=== PATIENT | female | born 1955 | race Caucasian/White ===

== ENCOUNTER 2021-06-25 16:40 | Emergency (ER) | payer MEDICARE, SELFPAY ==
[2021-06-25 16:40] VITALS: BP 148/70; PULSE 69; RESP 20; TEMP 36.8; O2SAT 99; BMI 19.5
--- NOTE | 2021-06-25 16:50 | PC.NURSE ---
PATIENT SENT TO ER PER Ezekiel QUINN APRN FOR FURTHER EVALUATION. REPORT GIVEN TO Vick DOMINGUEZ RN
--- NOTE | 2021-06-25 17:10 | HMH.EDUTC ---
[facility] Disposition Clinical Impression: Near syncope Headache Qualifiers: Headache type: unspecified Headache chronicity pattern: acute headache Intractability: not intractable Qualified Code(s): R51.9 - Headache, unspecified Nausea and vomiting Qualifiers: Vomiting type: unspecified Vomiting Intractability: non-intractable Qualified Code(s): R11.2 - Nausea with vomiting, unspecified Disposition: Home, Self-Care Condition on Discharge: Fair Instructions: DI for Syncope in Adults (Fainting), DI for Nausea -- Adult Prescriptions: Fluticasone Propionate [Flonase Allergy Relief NS] 1 spray NS BID PRN #1 ml PRN Reason: Congestion Transmission Status: Received by [facility] # Ondansetron [Zofran 4mg ODT] 4 mg PO TIDP PRN #10 tab PRN Reason: Nausea Transmission Status: Received by [facility] # Referrals: Nolan Elder MD [Primary Care Provider] - 3 days Time of Disposition: 17:22 Medical Decision Making - Jm Inquiry Pt receiving controlled substance: No Jm was queried for this patient: No Vital Signs: 06/25/21 16:40 06/25/21 17:13 06/25/21 18:00 Temperature 98.2 F 97.5 F L Temperature Source Oral Oral Pulse Rate 84 Pulse Rate [Left Brachial] 69 85 Respiratory Rate 20 18 16 Blood Pressure 142/88 H Blood Pressure [Left Arm] 148/70 H 157/94 H Blood Pressure Mean 110 Blood Pressure Mean [Left Arm] 96 115 Blood Pressure Source Blood Pressure Source [Left Arm] Automatic Cuff Automatic Cuff Blood Pressure Position [Left Arm] Sitting Sitting 02 Sat by Pulse Oximetry 99 97 99 Oxygen Delivery Method Room Air Room Air Room Air 06/25/21 19:25 Temperature 98.3 F Temperature Source Oral Pulse Rate 92 H Pulse Rate [Left Brachial] Respiratory Rate 19 Blood Pressure 150/98 H Blood Pressure [Left Arm] Blood Pressure Mean Blood Pressure Mean [Left Arm] Blood Pressure Source Manual Cuff/ Auscultation Blood Pressure Source [Left Arm] Blood Pressure Position [Left Arm] 02 Sat by Pulse Oximetry Oxygen Delivery Method Room Air - Lab Data Lab Results 06/25/21 17:10: WBC 8.7, RBC 4.50, Hgb 13.8, Hct 39.9, MCV 88.6, MCH 30.6, MCHC 34.5, RDW 13.0, Plt Count 433 H, MPV 8.2, Neut % (Auto) 57.3, Lymph % (Auto) 31.1, [place] % (Auto) 6.7, Eos % (Auto) 3.7, Baso % (Auto) 1.3, Neut # (Auto) 5.0, Lymph # (Auto) 2.7, [place] # (Auto) 0.6, Eos # (Auto) 0.3, Baso # (Auto) 0.1 06/25/21 17:10: Sodium 140, Potassium 2.8 L*, Chloride 105, Carbon Dioxide 18 L, Anion Gap 19.8 H, BUN 19 H, Creatinine 0.50 L, Estimated Creat Clear 42, Estimated GFR 123, Est GFR ( Amer) 149, Glucose 142 H, Calcium 9.8, Total Bilirubin 0.2, AST 32, ALT 21, Alkaline Phosphatase 102, Troponin I < 0.01, Total Protein 7.2, Albumin 4.6, Globulin 2.6, Albumin/Globulin Ratio 1.8 06/25/21 17:10: SARS-CoV-2 (PCR) Not detected, Influenza A Untype (PCR) Not detected, Influenza Type B (PCR) Not detected Result diagrams: 06/25/21 17:10 06/25/21 17:10 Orders (Tests/Meds): ED MEDICATIONS Discontinued Medications Generic Name Dose Route Start Last Admin Trade Name Freq PRN Reason Stop Dose Admin Lactated Ringer's 1,000 mls @ 999 mls/hr 06/25/21 19:15 06/25/21 19:06 Lactated Ringer's 1000 Ml Bag IV 06/25/21 20:15 999 mls/hr .Q1H1M JENNIFER Administration Methylprednisolone Sodium Succinate 40 mg 06/25/21 19:04 06/25/21 19:06 Methylprednisolone Sod Succ 40mg Vial IV 06/25/21 19:05 40 mg ONCE ONE Administration Ondansetron HCl 4 mg 06/25/21 17:20 06/25/21 17:21 Ondansetron 4mg/2ml Vial IV 06/25/21 17:21 4 mg ONCE ONE Administration Potassium Chloride 40 meq 06/25/21 18:05 06/25/21 18:11 Potassium Chloride 20meq/15ml Udc PO 06/25/21 18:06 40 meq ONCE ONE Administration Potassium Chloride 40 meq 06/25/21 19:15 06/25/21 19:36 Potassium Chloride 20meq/15ml Udc PO 06/25/21 19:16 40 meq ONCE ONE Administration Medical Decision Narrative: Pat
[2021-06-25 17:13] VITALS: BP 157/94; PULSE 85; RESP 18; TEMP 36.4; O2SAT 97; BMI 17.4
--- NOTE | 2021-06-25 17:19 | ECG_ITS ---
APPROVED REPORT Exam: Resting ECG HR:87 bpm ECG Measurements Heart Rate 87 AXES RI 140 P 33 QRSd 92 QRS 10 QT 416 T 52 QTc 500 Conclusion Normal sinus rhythm Poor r wave progression Abnormal ECG Electronically signed by : Nolan Flanagan MD 06/26/2021 14:21:28
[2021-06-25 17:25] LABS: Coronavirus 19, PCR Not Detected (NotDetected); Influenza A, PCR Not Detected (NotDetected); Influenza B, PCR Not Detected (NotDetected)
[2021-06-25 17:37] LABS: Basophils # 0.1 K/mm3 (0-0.2); Basophils % 1.3 % (0.1-2.0); Eosinophils # 0.3 K/mm3 (0.0-0.4); Eosinophils % 3.7 % (0.1-12.0); Hematocrit 39.9 % (37.0-47.0); Hemoglobin 13.8 g/dL (12.2-16.2); Lymphocytes # 2.7 K/mm3 (0.7-4.5); Lymphocytes % 31.1 % (10-50); Mean Corpuscular HGB Conc 34.5 g/dL (31.8-35.4); Mean Corpuscular Hemoglobin 30.6 pg (27.0-31.2); Mean Corpuscular Volume 88.6 fl (81-99); Mean Platelet Volume 8.2 fl (7.4-10.4); Monocytes # 0.6 K/mm3 (0.1-1.0); Monocytes % 6.7 % (1.7-9.3); Neutrophils % 57.3 % (37.0-80.0); Platelet Count 433 K/mm3 (142-424); White Blood Count 8.7 K/mm3 (4.8-10.8)
[2021-06-25 17:38] LABS: Sodium 140 mmol/L (136-145)
[2021-06-25 17:40] LABS: Blood Urea Nitrogen 19 mg/dl (7-17); Creatinine Clearance Estimated 42 mL/min (50-200); Estimated Glomerular Filt Rate 123 ml/min (>60); GFR (African American) 149 ML/MIN (>60)
[2021-06-25 17:41] LABS: Albumin Level 4.6 g/dl (3.5-5.0); Albumin/Globulin Ratio 1.8 (1.1-1.8); Calcium 9.8 mg/dl (8.4-10.2); Chloride 105 mmol/L (98-107); Globulin 2.6 g/dL (1.3-3.2); Glucose 142 mg/dl (74-100); Total Protein,Serum 7.2 g/dl (6.3-8.2)
[2021-06-25 17:44] LABS: Alanine Aminotransferase 21 U/L (12-78); Alkaline Phosphatase 102 U/L (38-126); Aspartate Amino Transferase 32 U/L (14-36); Bilirubin,Total 0.2 mg/dl (0.2-1.3); Carbon Dioxide 18 mmol/L (22.0-30.0)
[2021-06-25 17:49] LABS: Anion Gap 19.8 mEq/L (5-15); Potassium 2.8 mmoL/L (3.5-5.1)
[2021-06-25 17:56] LABS: Troponin I < 0.01 ng/ml (0.00-0.034)
[2021-06-25 18:00] VITALS: BP 142/88; PULSE 84; RESP 16; O2SAT 99
--- NOTE | 2021-06-25 18:01 | PC.NURSE ---
ER notified of critical potassium
--- NOTE | 2021-06-25 18:05 | CT_ITS ---
PROCEDURE INFORMATION: Exam: CT Head Without Contrast Exam date and time: 06/25/2021 6:05 PM Age: 66 years old Clinical indication: Pain; Headache not specified; Additional info: Dizziness headache TECHNIQUE: Imaging protocol: Computed tomography of the head without contrast. Radiation optimization: All CT scans at this facility use at least one of these dose optimization techniques: automated exposure control; mA and/or kV adjustment per patient size (includes targeted exams where dose is matched to clinical indication); or iterative reconstruction. COMPARISON: No relevant prior studies available. FINDINGS: Brain: Prominent sulci. Patchy hypodensity of the cerebral white matter which are nonspecific but likely secondary to microangiopathic changes. Cerebral ventricles: The ventricles are prominent secondary to diffuse volume loss/atrophy. Paranasal sinuses: Mild mucoperiosteal thickening of the paranasal sinuses. Mastoid air cells: Visualized mastoid air cells are well aerated. Bones/joints: Unremarkable. No acute fracture. Soft tissues: Unremarkable. IMPRESSION: 1. Mild mucoperiosteal thickening of the paranasal sinuses. 2. Chronic age related changes but no evidence of acute intracranial pathology.
--- NOTE | 2021-06-25 18:16 | PC.NURSE ---
pt to CT
--- NOTE | 2021-06-25 19:06 | HMH.EDGENADL ---
ED Disposition Clinical Impression: Near syncope Headache Qualifiers: Headache type: unspecified Headache chronicity pattern: acute headache Intractability: not intractable Qualified Code(s): R51.9 - Headache, unspecified Nausea and vomiting Qualifiers: Vomiting type: unspecified Vomiting Intractability: non-intractable Qualified Code(s): R11.2 - Nausea with vomiting, unspecified Disposition: Still a Patient Condition on Discharge: Good Prescriptions: Fluticasone Propionate [Flonase Allergy Relief NS] 1 spray NS BID PRN #1 ml PRN Reason: Congestion Transmission Status: Pending to [facility] # Ondansetron [Zofran 4mg ODT] 4 mg PO TIDP PRN #10 tab PRN Reason: Nausea Transmission Status: Pending to [facility] # Referrals: Nolan Elder MD [Primary Care Provider] - 3 days Time of Disposition: 19:13 - Critical Care Critical Care Time: No Attestation: On 06/25/21, the high probability of a clinically significant, sudden or life threatening deterioration of the following system(s) required my full and direct attention, intervention and personal management. The time I documented below is in addition to time spent performing reported procedures but includes the following listed in this critical care notation. Medical Decision Making - Medical Records Medical records reviewed: Yes: I reviewed the patient's medical records. - Jm Inquiry Pt receiving controlled substance: No Vital Signs: 06/25/21 16:40 06/25/21 17:13 06/25/21 18:00 Temperature 98.2 F 97.5 F L Temperature Source Oral Oral Pulse Rate 84 Pulse Rate [Left Brachial] 69 85 Respiratory Rate 20 18 16 Blood Pressure 142/88 H Blood Pressure [Left Arm] 148/70 H 157/94 H Blood Pressure Mean 110 Blood Pressure Mean [Left Arm] 96 115 Blood Pressure Source [Left Arm] Automatic Cuff Automatic Cuff Blood Pressure Position [Left Arm] Sitting Sitting 02 Sat by Pulse Oximetry 99 97 99 Oxygen Delivery Method Room Air Room Air Room Air - Lab Data Lab results reviewed: Yes: I reviewed the patient's lab results. Lab Results 06/25/21 17:10: WBC 8.7, RBC 4.50, Hgb 13.8, Hct 39.9, MCV 88.6, MCH 30.6, MCHC 34.5, RDW 13.0, Plt Count 433 H, MPV 8.2, Neut % (Auto) 57.3, Lymph % (Auto) 31.1, [place] % (Auto) 6.7, Eos % (Auto) 3.7, Baso % (Auto) 1.3, Neut # (Auto) 5.0, Lymph # (Auto) 2.7, [place] # (Auto) 0.6, Eos # (Auto) 0.3, Baso # (Auto) 0.1 06/25/21 17:10: Sodium 140, Potassium 2.8 L*, Chloride 105, Carbon Dioxide 18 L, Anion Gap 19.8 H, BUN 19 H, Creatinine 0.50 L, Estimated Creat Clear 42, Estimated GFR 123, Est GFR ( Amer) 149, Glucose 142 H, Calcium 9.8, Total Bilirubin 0.2, AST 32, ALT 21, Alkaline Phosphatase 102, Troponin I < 0.01, Total Protein 7.2, Albumin 4.6, Globulin 2.6, Albumin/Globulin Ratio 1.8 06/25/21 17:10: SARS-CoV-2 (PCR) Not detected, Influenza A Untype (PCR) Not detected, Influenza Type B (PCR) Not detected Result diagrams: 06/25/21 17:10 06/25/21 17:10 Orders (Tests/Meds): ED MEDICATIONS Generic Name Dose Route Start Last Admin Trade Name Freq PRN Reason Stop Dose Admin Lactated Ringer's 1,000 mls @ 999 mls/hr 06/25/21 19:15 Lactated Ringer's 1000 Ml Bag IV 06/25/21 20:15 .Q1H1M JENNIFER Discontinued Medications Generic Name Dose Route Start Last Admin Trade Name Freq PRN Reason Stop Dose Admin Methylprednisolone Sodium Succinate 40 mg 06/25/21 19:04 Methylprednisolone Sod Succ 40mg Vial IV 06/25/21 19:05 ONCE ONE Ondansetron HCl 4 mg 06/25/21 17:20 06/25/21 17:21 Ondansetron 4mg/2ml Vial IV 06/25/21 17:21 4 mg ONCE ONE Administration Potassium Chloride 40 meq 06/25/21 18:05 06/25/21 18:11 Potassium Chloride 20meq/15ml Udc PO 06/25/21 18:06 40 meq ONCE ONE Administration ORDERS Category Date Time Status Troponin I Q3H Lab 06/25/21 20:30 Ordered Troponin I Q3H Lab 06/25/21 23:30 Ordered - CT Data CT Scan:
[2021-06-25 19:25] VITALS: BP 150/98; PULSE 92; RESP 19; TEMP 36.8; O2SAT 99
== END 2021-06-25 20:02 | disposition home or self-care (01) ==
LOC: UTC 16:46 → ER 17:01
PROVIDERS: Emergency Provider Family Medicine; PCP Family Medicine
DX: R55 Syncope and collapse (principal)
CPT/HCPCS: 70450; 80053; 84484; 85025; 93005; 96365; 96375; 99283; C9803; J2405; U0003; U0005

== ENCOUNTER 2022-02-26 14:22 | Emergency (ER) | payer OTHER, MEDICARE, SELFPAY ==
[2022-02-26 14:23] VITALS: BP 161/96; PULSE 90; RESP 18; TEMP 36.8; O2SAT 98; BMI 17.3
[2022-02-26 14:31] VITALS: BP 134/77; PULSE 94; RESP 16; O2SAT 98
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
--- NOTE | 2022-02-26 14:39 | PC.NURSE ---
pt given call light, offered warm blanket, pt declined. Will continue to monitor
--- NOTE | 2022-02-26 14:51 | PC.NURSE ---
LLOYD MUÑIZ At
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
[2022-02-26 15:30] VITALS: BP 148/85; PULSE 80; RESP 18; O2SAT 98
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
--- NOTE | 2022-02-26 16:51 | PC.NURSE ---
PT HAS BEEN UP AMBULATORY AT THE BEDSIDE OF HER WHOM WE ARE TRANSFERRING TO .
[2022-02-26 17:00] VITALS: BP 146/79; PULSE 88; RESP 18; TEMP 36.8; O2SAT 99
== END 2022-02-26 17:00 | disposition home or self-care (01) ==
PROVIDERS: Emergency Provider Emergency Medicine; PCP Family Medicine
DX: S46.911A Strain of unspecified muscle, fascia and tendon at shoulder and upper arm level, right arm, initial encounter (principal); V89.2XXA Person injured in unspecified motor-vehicle accident, traffic, initial encounter; Y92.410 Unspecified street and highway as the place of occurrence of the external cause
CPT/HCPCS: 71046; 73030; 99283

== ENCOUNTER 2023-10-02 09:15 | Emergency (ER) | payer MEDICARE, SELFPAY ==
[2023-10-02 09:20] VITALS: BP 105/80; PULSE 87; RESP 20; TEMP 36.8; O2SAT 98; BMI 19.5
--- NOTE | 2023-10-02 09:29 | XR_ITS ---
FINAL REPORT CLINICAL HISTORY: fall FINDINGS: Right wrist Three views were obtained. There is impacted fracture of the distal radius with dorsal angulation of the distal fracture fragment. There is a probable nondisplaced fracture of the ulnar styloid process. Soft tissue swelling is seen. IMPRESSION: Fractures as above. Reviewed, Interpreted and Dictated by Vito Coronel III, MD Transcribed by Fiorella Jones Authenticated and [facility]
--- NOTE | 2023-10-02 09:29 | XR_ITS ---
FINAL REPORT CLINICAL HISTORY: fall FINDINGS: Right hand Three views were obtained. There is no acute fracture or dislocation of the hand. There are distal radius and ulnar styloid process fractures. There are mild degenerative changes of the hand. IMPRESSION: Wrist fractures as detailed above. Reviewed, Interpreted and Dictated by Vito Coronel III, MD Transcribed by Fiorella Jones Authenticated and [facility]
--- NOTE | 2023-10-02 09:37 | EXP.UTC ---
Discharge Plan Disposition Patient Disposition: Home, Self-Care Condition: Good Prescriptions Prescriptions: No Action ondansetron 4 MG tablet,disintegrating 4 mg PO TIDP PRN (Reason: Nausea) Qty: 10 0RF fluticasone propionate 9.9 ML spray,suspension 1 spray NS BID PRN (Reason: Congestion) Qty: 1 0RF Referrals Follow up/Referrals: Yara Rubi MD [Primary Care Provider] - See instructions Branden Addison DO [Staff Physician] - 10/03/23 10:15 am Activity Restrictions/Add. Instructions Additional Instructions/Restrictions: *RICE, Rest the extremity, Ice 15-20 minutes 3-4 times daily, Compress- wear the alvaro wrap as discussed as much as possible to help reduce swelling and pain, Elevate the extremity when at rest *Alvaro wrap/Orthoglass is for support and help control swelling Be sure that is not to tight but not to loose either *Elevate when resting? *Ibuprofen 400-600mg every 6-8 hours as needed for pain an inflammation. If need something more can take Tylenol in between doses of Ibuprofen to help Immediately follow up with your family doctor for new or worsening of symptoms, or no noticeable improvement over the next 3-5 days Follow up with Dr Addison Tomorrow in Orthopedics office at 10:15 Clinical Impressions Clinical Impression: Fracture of wrist Qualifiers: Encounter type: initial encounter Fracture type: closed Laterality: right Qualified Code(s): S62.101A - Fracture of unspecified carpal bone, right wrist, initial encounter for closed fracture Instructions Patient Instructions: How To Perform RICE (Rest, Ice, Compress, Elevate), DI for Distal Radius Fracture Discharge ED Provider: Malu Lott [facility] General Stated complaint: fell/ hurt R wrist ao 09/30 Mode of Arrival: Ambulatory Source of Information: Patient Limitations: No Limitations Time Seen by Provider: 10/02/23 09:37 Description of Symptoms (Recalled from Triage Doc. by RN): PATIENT C/O INJURY TO RIGHT HAND/WRIST AFTER FALLING OUT OF BED AND TRYING TO CATCH HERSELF YESTERDAY. BRUISING AND SWELLING NOTED TO SITE HEENT Symptoms (Recalled from RN notes): No Resp Symptoms (Recalled from RN notes): No Skin Symptoms (Recalled from RN notes): No MS Symptoms (Recalled from RN notes): Yes Functional Status (Recalled from RN notes): WNL History of Present Illness Provider Complaint: Patient states that she fell out of bed yesterday and tried to catch herself with her right hand and she hurt her right hand and wrist and has been having pain and swelling ever since so today when she was still not feeling well she came in Related Data Previous Rx's Medication Instructions Recorded fluticasone propionate 50 1 spray NS BID PRN Congestion #1 mL 06/25/21 mcg/actuation nasal spray,suspension ondansetron 4 mg disintegrating 4 mg PO TIDP PRN Nausea #10 tabs 06/25/21 tablet Allergies Allergy/AdvReac Type Severity Reaction Status Date / Time No Known Allergies Allergy Verified 10/02/23 09:35 Worker's Comp Is this a Worker's Comp case?: No [facility] Disclaimer: The information contained in this section may have been updated after the patient was seen, as this information can be updated by other users. Social History Smoking Status: Unknown if ever smoked alcohol intake: never current occupational status: unemployed Travel in the last 8 weeks: None ROS Obtained: Yes All systems reviewed & no additional complaints except as documented and Yes Systems reviewed as appropriate & no additional complaints except as documented Constitutional Constitutional: Reports system reviewed and no additional complaints, except as documented and Reports as per HPI ENT Ears, Nose, Mouth, and Throat: Reports system reviewed and no additional complaints, except as documented and Reports as per HPI Cardiovascular Cardiovascular: Reports system reviewed and no additional complaints, except as documented and Reports as per HPI Respiratory Respiratory: Reports system reviewed and no additional complaints, except as documented and Reports as per HPI Gastrointestinal Gastrointestingal: Reports system reviewed and no additional complaints, except as documented and as per HPI Musculoskeletal Musculoskeletal: Reports system reviewed and no additional complaints, except as documented and Reports as per HPI Comments: Pain,swelling and bruising to right hand and wrist after falling out of bed yesterday Physical Exam General General appearance: alert and in no apparent distress ENT ENT exam: Present mucous membranes moist Respiratory Respiratory exam: Present normal lung sounds bilaterally; Absent respiratory distress or wheezes Cardiovascular Cardiovascular exam: Present regular rate, normal rhythm and normal heart sounds Expanded Upper Extremity Exam Right: L/R Arms Top View: 1. reports pain and tenderness after falling out of bed yesterday Mild swelling and bruising noted Neurological Exam Neurological exam: Present alert, oriented X3 and normal gait Medical Decision Making [facility] Inquiry Pt receiving controlled substance: No Jm was queried for this patient: No Vital Signs: 10/02/23 09:20 Temperature 98.2 F Temperature Source Oral Pulse Rate [Left Brachial] 87 Respiratory Rate 20 Blood Pressure [Left Arm] 105/80 L Blood Pressure Mean [Left Arm] 88 Blood Pressure Source [Left Arm] Automatic Cuff Blood Pressure Position [Left Arm] Sitting 02 Sat by Pulse Oximetry 98 Oxygen Delivery Method Room Air Orders (Tests/Meds): ORDERS Category Date Time Status Hand XR right minimum 3 views [XR hand RT min 3V] Stat Exams 10/02/23 09:29 Ordered Wrist XR right minimum 3 views [XR wrist RT min 3V] Exams 10/02/23 09:29 Ordered Stat Radiology Data #1: Image(s): Hand Image Reviewed: Yes I have reviewed radiologist's interpretation FINDINGS: Right hand Three views were obtained. There is no acute fracture or dislocation of the hand. There are distal radius and ulnar styloid process fractures. There are mild degenerative changes of the hand. IMPRESSION: Wrist fractures as detailed above. #2: Image(s): Wrist Image Reviewed: Yes I have reviewed radiologist's interpretation FINDINGS: Right wrist Three views were obtained. There is impacted fracture of the distal radius with dorsal angulation of the distal fracture fragment. There is a probable nondisplaced fracture of the ulnar styloid process. Soft tissue swelling is seen. IMPRESSION: Fractures as above. Physician Consults Physician Consulted: Orthopedics Time: 10:10 Reason -: Orthopedic Eval/Care Comment/Response: BJ spoke with Dr Valdez and he viewed xrays advised to place in [place] splint and follow up with Dr Addison in office tomorrow at 1015 Procedures Orthopedic Splinting/Casting Injury #1: Side: right Upper Extremity Injury Location: wrist Upper Extremity Immobilizer: sugar tong splint and applied by nurse/dr hilton Additional Comments: patient denies feeling tight Post Cast/Splinting Neuro Status: intact and no change Post Cast/Splinting Vasc Status: intact and no change
[2023-10-02 10:36] VITALS: BP 105/80; PULSE 87; RESP 20; TEMP 36.8; O2SAT 98
--- NOTE | 2023-10-02 10:43 | PC.NURSE ---
SLING APPLIED TO RIGHT ARM
== END 2023-10-02 10:43 | disposition home or self-care (01) ==
PROVIDERS: Emergency Provider Nurse Practitioner; PCP Family Medicine
DX: S62.101A Fracture of unspecified carpal bone, right wrist, initial encounter for closed fracture (principal); M25.531 Pain in right wrist; W06.XXXA Fall from bed, initial encounter
CPT/HCPCS: 73110; 73130; 99204; 99212; G0463

== ENCOUNTER 2023-10-24 10:12 | Outpatient (CLI) | payer MEDICARE, SELFPAY ==
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
== END 2023-10-24 23:59 ==
LOC: RAD 10:14
PROVIDERS: PCP Family Medicine; Visit Provider Orthopaedic Surgery
DX: S62.101A Fracture of unspecified carpal bone, right wrist, initial encounter for closed fracture (principal)
CPT/HCPCS: 73110

== ENCOUNTER 2023-11-14 09:18 | Outpatient (CLI) | payer MEDICARE, SELFPAY ==
--- NOTE | 2023-11-14 09:21 | XR_ITS ---
FINAL REPORT CLINICAL HISTORY: right wrist fx COMPARISON: 10/24/2023 FINDINGS: RIGHT WRIST Three views demonstrate a mildly impacted transverse fracture of the distal radial metaphysis. There is no evidence of intra-articular extension. The findings are similar to the prior study. There is an ununited ulnar styloid fragment. The visualized joint spaces are normally aligned. The soft tissues are unremarkable. IMPRESSION: Distal radial metaphysis fracture as above, similar to the prior study. Reviewed, Interpreted and Dictated by Filippo Golden MD Transcribed by Cecilia Blunt Authenticated and [facility]
== END 2023-11-14 23:59 ==
LOC: RAD 09:20
PROVIDERS: PCP Family Medicine; Visit Provider Orthopaedic Surgery
DX: M25.531 Pain in right wrist; S62.101A Fracture of unspecified carpal bone, right wrist, initial encounter for closed fracture
CPT/HCPCS: 73110

== ENCOUNTER 2025-03-08 09:13 | Outpatient (CLI) | payer MEDICARE, SELFPAY ==
[2025-03-08 09:28] LABS: Hematocrit 40.2 % (37.0-47.0); Hemoglobin 12.9 g/dL (12.2-16.2); Immature Granulocytes % 0.5 %; Mean Corpuscular HGB Conc 32.1 g/dL (31.8-35.4); Mean Corpuscular Hemoglobin 28.5 pg (27.0-31.2); Mean Corpuscular Volume 88.9 fl (81-99); Nucleated Red Blood Cells % 0 %; Platelet Count 331 K/mm3 (142-424); Red Blood Count 4.52 M/mm3 (4.20-5.40); Red Cell Distribution Width-SD 43.1 fL; White Blood Count 6.3 K/mm3 (4.8-10.8)
[2025-03-08 10:07] LABS: Albumin Level 4.6 g/dl (3.5-5.0); Chloride 101 mmol/L (98-107); Sodium 141 mmol/L (136-145)
[2025-03-08 10:08] LABS: Potassium 3.2 mmoL/L (3.5-5.1)
[2025-03-08 10:10] LABS: Alanine Aminotransferase 20 U/L (12-78); Alkaline Phosphatase 99 U/L (38-126); Anion Gap 14.2 mEq/L (5-15); Aspartate Amino Transferase 27 U/L (14-36); Bilirubin,Direct 0.3 mg/dl (0.0-0.4); Bilirubin,Indirect 0.1 mg/dL (0.0-0.9); Bilirubin,Total 0.4 mg/dl (0.2-1.3); Bilirubin,Unconjugated 0.2 mg/dL (0.0-1.1); Blood Urea Nitrogen 18 mg/dl (7-17); Carbon Dioxide 29 mmol/L (22.0-30.0); Cholesterol 271 mg/dl (140-200); Creatinine,Serum 0.70 mg/dl (0.52-1.04); Estimated Glomerular Filt Rate 83 ml/min (>60); GFR (African American) 100 ML/MIN (>60); Total Protein,Serum 7.4 g/dl (6.3-8.2); Triglycerides 94 mg/dl (30-150)
[2025-03-08 10:11] LABS: Calcium 9.4 mg/dl (8.4-10.2); Glucose 97 mg/dl (74-100); HDL Cholesterol 74 mg/dl (40-60); Magnesium 2.2 mg/dl (1.6-2.3)
[2025-03-08 10:25] LABS: Free T4 (Free Thyroxine) 1.48 ng/dl (0.78-2.19)
[2025-03-08 10:42] LABS: Thyroid Stimulating Hormone 1.58 uIU/mL (0.465-4.68)
== END 2025-03-08 23:59 | disposition home or self-care (01) ==
LOC: LAB 09:15
PROVIDERS: PCP Nurse Practitioner; Visit Provider Nurse Practitioner
DX: R07.89 Other chest pain (principal)
CPT/HCPCS: 36415; 80048; 80061; 80076; 83735; 84439; 84443; 85025

== ENCOUNTER 2025-03-16 14:44 | Outpatient (CLI) | payer MEDICARE, SELFPAY ==
--- NOTE | 2025-03-16 15:15 | CA_ITS ---
APPROVED REPORT EXAM: Comprehensive 2D, Doppler, and color-flow Echocardiogram [place]: Jeri Maciel CRT Ht: 5 ft 3 in Wt: 107lbs BSA: 1.48 BP: 147/90 mmHg Indications: Chest Pain, Shortness of Breath 2D Dimensions LA Volume 29.50 mL LA Volume Index 19.40 mL/m2 (M/F) 16-34 M-Mode Dimensions RVDd 2.49 cm (0.9-2.6) LA Diam 3.13 cm (1.9-4.0) LVDd 3.80 cm (3.5-5.7) LVDs 2.15 cm (3.5-5.7) IVSd 1.04 cm (0.6-1.1) PWd 0.96 cm (0.6-1.1) EF (Teich) 75.30% FS 43.40% EDV (Teich) 62.00 mL TAPSE 1.98 (<1.7) ESV (Teich) 15.30 mL LV Diastology E Decel Time 180 (160-240 msec) E/A Ratio 0.89 MED A' 12.20 cm/s LAT A' 16.00 cm/s Aortic Valve AO Peak GR. 9.00 mmHg Mitral Valve MV A Velocity 91.0 (40-130 cm/s) E/A Ratio 0.89 Pulmonary Valve PV Peak Velocity 131.0 (50-150 cm/s) Tricuspid Valve TR P. Velocity 256.00 cm/s RAP Estimate 10.00 mmHg RVSP 36.30 mmHg Left Ventricle The left ventricle is normal size. Left ventricular systolic function is normal. The left ventricular ejection fraction is within the normal range. There is increased left ventricular wall thickness. There is normal LV segmental wall motion. The left ventricular diastolic function are LVEF is 55% Right Ventricle The right ventricle is normal size. The right ventricular systolic function is normal. Atria The left atrium is mildly dilated. The right atrium is mildly dilated. There is no color Doppler evidence of interatrial shunt. Aortic Valve The aortic valve is mildly thickened. There is no hemodynamically significant aortic valvular stenosis. Trace aortic regurgitation is present. Mitral Valve The mitral valve is normal in structure. No evidence of mitral valve stenosis. Mild mitral regurgitation is present. Tricuspid Valve The tricuspid valve leaflets are thin and pliable. Mild tricuspid regurgitation. RVSP 20 to 25 mmHg. Pulmonic Valve The pulmonary valve is grossly normal in structure. Trace pulmonic valve regurgitation is present. Great Vessels The aortic root is normal in size. IVC is normal in size and collapses >50% with inspiration. Pericardium There is no pericardial effusion. Other Information Study Quality: Fair Conclusion Normal biventricular systolic function. Mild biatrial dilation. Mild MR, mild TR. Electronically signed by : Linh Duron MD 03/19/2025 18:50:06
== END 2025-03-16 23:59 | disposition home or self-care (01) ==
LOC: RT 14:47
PROVIDERS: PCP Nurse Practitioner; Visit Provider Nurse Practitioner
DX: I08.3 Combined rheumatic disorders of mitral, aortic and tricuspid valves (principal)
CPT/HCPCS: 93306